=== PATIENT | female | born 1975 | race Hispanic/Latino ===

== ENCOUNTER 2018-02-21 13:27 | Outpatient (CLI) | payer OTHER | END 2018-02-21 13:28 | disposition home or self-care (01) | LOC: BICMAMMO 13:27 | PROVIDERS: ATTEND Obstetrics & Gynecology | DX: Z12.31 Encounter for screening mammogram for malignant neoplasm of breast (principal) | CPT/HCPCS: 77063; 77067 ==

== ENCOUNTER 2019-10-19 11:51 | Outpatient (CLI) | payer BC ==
--- NOTE | 2019-10-19 13:07 | ULT ---
Exam: Pelvic ultrasound HISTORY: Pelvic pain COMPARISON: None TECHNIQUE: Multiple grayscale and color Doppler images were obtained in a transabdominal and transvag inal pelvic ultrasound. Spectral analysis of the Doppler waveforms of the ovaries were performed. FINDINGS: CERVIX: Unremarkable UTERUS: Mildly heterogeneous in appearance, but no focal lesion is seen. ENDOMETRIAL STRIPE: Not well delineated, but there is no fluid or fluid collection seen in the expect ed location of the endometrial canal. No free fluid is present. RIGHT OVARY: Normal flow, without focal mass. LEFT OVARY: Normal flow, without focal mass. IMPRESSION: 1. Mild nonspecific heterogeneity of the uterus. In addition, the endometrial stripe is not well deli neated on this exam. However, no fluid or fluid collection is seen in the expected location of the endometrial canal. 2. Normal appearing bilateral ovaries.
== END 2019-10-19 11:52 | disposition home or self-care (01) ==
LOC: SCSULT 11:51
PROVIDERS: ATTEND Internal Medicine
DX: R10.2 Pelvic and perineal pain (principal); N85.8 Other specified noninflammatory disorders of uterus
CPT/HCPCS: 76856; 80053; 81001; 83036; 85025; 87480; 87491; 87510; 87591; 87660

== ENCOUNTER 2023-11-08 17:00 | Outpatient (CLI) | payer BC | END 2023-11-08 17:01 | disposition home or self-care (01) | LOC: SLEEPLAB 17:00 | PROVIDERS: ATTEND Internal Medicine | DX: G47.33 Obstructive sleep apnea (adult) (pediatric) (principal); R53.83 Other fatigue; R06.83 Snoring | CPT/HCPCS: 95810 ==

== ENCOUNTER 2023-11-25 16:00 | Outpatient (CLI) | payer BC | END 2023-11-25 16:01 | disposition home or self-care (01) | LOC: SLEEPLAB 16:00 | PROVIDERS: ATTEND Internal Medicine | DX: G47.33 Obstructive sleep apnea (adult) (pediatric) (principal); R53.83 Other fatigue; R06.83 Snoring; F41.8 Other specified anxiety disorders; J30.2 Other seasonal allergic rhinitis | CPT/HCPCS: 95811 ==